=== PATIENT | female | born 1990 | race Hispanic/Latino ===

== ENCOUNTER 2018-07-04 18:24 | Emergency (ER) | payer OTHER ==
[2018-07-04 18:58] LABS: BILIRUBIN,URINE Negative (NEGATIVE); COLOR,URINE Yellow (YELLOW); GLUCOSE, URINE (UA) Negative (NEGATIVE); KETONES,URINE Negative (NEGATIVE); LEUKOCYTE ESTERASE ,URINE Negative (NEGATIVE); NITRATE,URINE Negative (NEGATIVE); OCCULT BLOOD,URINE Negative (NEGATIVE); PH,URINE 6.5 (5.0-8.0); PROTEIN,URINE Negative (NEGATIVE)
[2018-07-04 19:08] LABS: APPEARANCE,URINE SLIGHTLY CLOUDY (CLEAR)
[2018-07-04 19:18] LABS: BACTERIA,URINE Few /HPF (None Seen); RBC,URINE 0-1 /HPF (0-1); SQUAMOUS EPITHELIAL CELL,UR Moderate /HPF (0-2); WBC,URINE 0-1 /HPF (0-1)
[2018-07-04 19:19] LABS: MUCUS,URINE Few LPF (None Seen)
[2018-07-04] MEDS ORDERED: MORPHINE SULFATE 4 MG/1ML SYG ONE (19:25)
[2018-07-04] MEDS ORDERED: ONDANSETRON HCL 4 MG/2 ML VIAL ONE (19:25)
[2018-07-04] MEDS ORDERED: SODIUM CHLORIDE 0.9% 1000ML 1,000 ML IV ONE (19:25)
[2018-07-04 19:28] LABS: BASOPHILS % (AUTO) 0.5 % (0.0-5.0); EOSINOPHILS % (AUTO) 0.7 % (0.0-8.0); HEMATOCRIT 42.6 % (36-48); LYMPHOCYTES % (AUTO) 13.2 % (21.0-51.0); MEAN CORPUSCULAR HEMOGLOBIN 27.7 pg (27.0-33.0); MEAN CORPUSCULAR HGB CONC 33.2 g/dL (32.0-36.0); MEAN CORPUSCULAR VOLUME 83.4 fL (79-99); MONOCYTES % (AUTO) 6.3 % (3.0-13.0); NEUTROPHILS % (AUTO) 79.3 % (40.0-77.0); PLATELET COUNT (AUTO) 281 K/uL (130-400); RED CELL DISTRIBUTION WIDTH 14.4 % (11.0-15.5); WHITE BLOOD COUNT (AUTO) 17.5 K/uL (4.8-10.8)
[2018-07-04 19:40] LABS: CREATININE 0.8 mg/dL (0.5-1.5); POTASSIUM 3.5 mmol/L (3.5-5.1)
[2018-07-04 19:45] LABS: ALBUMIN 3.5 g/dL (3.5-5.0); BILIRUBIN,TOTAL 0.2 mg/dL (0.2-1.0); TOTAL PROTEIN, SERUM 7.3 g/dL (6.0-8.3)
[2018-07-04] MEDS ORDERED: HYDROMORPHONE 1 MG/1 ML AMP ONE ×2 (20:20→21:28)
[2018-07-04] MEDS ORDERED: SODIUM CHLORIDE 0.9% 100 ML IV ONE (20:56)
[2018-07-04] MEDS ORDERED: CEFTRIAXONE SODIUM 1 GM ONE (20:56)
== END 2018-07-04 22:06 | disposition home or self-care (01) ==
LOC: EDH 18:24
DX: N39.0 Urinary tract infection, site not specified (principal); M54.5 Low back pain; I10 Essential (primary) hypertension; Z88.2 Allergy status to sulfonamides; Z88.6 Allergy status to analgesic agent; Z87.442 Personal history of urinary calculi; Z72.0 Tobacco use
CPT/HCPCS: 36415; 74176; 80053; 81001; 81025; 85025; 96374; 96375; 96376; 99285; J0696; J1170 ×2; J2270; J2405; J7030

== ENCOUNTER 2018-07-27 00:22 | Emergency (ER) | payer OTHER ==
[2018-07-27 00:50] LABS: BILIRUBIN,URINE NEGATIVE (NEGATIVE); COLOR,URINE YELLOW (YELLOW); GLUCOSE, URINE (UA) NEGATIVE (NEGATIVE); HCG,QUAL RESULT NEGATIVE (NEGATIVE); KETONES,URINE NEGATIVE (NEGATIVE); LEUKOCYTE ESTERASE ,URINE NEGATIVE (NEGATIVE); NITRATE,URINE NEGATIVE (NEGATIVE); OCCULT BLOOD,URINE SMALL (NEGATIVE); PH,URINE 7.5 (5.0-8.0); PROTEIN,URINE NEGATIVE (NEGATIVE); UROBILINOGEN,URINE 0.2 mg/dL (0.2-1.0)
[2018-07-27 00:51] LABS: APPEARANCE,URINE SLIGHTLY CLOUDY (CLEAR)
[2018-07-27 01:01] LABS: AMORPHOUS SEDIMENT,UR Many /LPF (None Seen); BACTERIA,URINE Few /HPF (None Seen); MUCUS,URINE Many LPF (None Seen); SQUAMOUS EPITHELIAL CELL,UR Many /HPF (0-2); WBC,URINE 0-1 /HPF (0-1)
[2018-07-27 01:11] LABS: AMPHET/METH SCREEN,URINE NEGATIVE (NEGATIVE); BARBITURATE SCREEN, URINE NEGATIVE (NEGATIVE); BENZODIAZEPINES SCREEN,URINE NEGATIVE (NEGATIVE); CANNABINOID SCREEN,URINE POSITIVE (NEGATIVE); COCAINE SCREEN,URINE NEGATIVE (NEGATIVE); OPIATE SCREEN,URINE NEGATIVE (NEGATIVE); PHENCYCLIDINE SCREEN,URINE NEGATIVE (NEGATIVE)
[2018-07-27] MEDS ORDERED: CEFTRIAXONE SODIUM 1 GM ONE (01:37)
[2018-07-27] MEDS ORDERED: AZITHROMYCIN 250 MG TABLET PO ONE (01:38)
[2018-07-27] MEDS ORDERED: ONDANSETRON ODT 4 MG TAB ONE (01:38)
== END 2018-07-27 01:56 | disposition home or self-care (01) ==
LOC: EDH 00:22
DX: F12.10 Cannabis abuse, uncomplicated (principal); R30.0 Dysuria; R10.30 Lower abdominal pain, unspecified; I10 Essential (primary) hypertension; Z87.442 Personal history of urinary calculi; Z88.2 Allergy status to sulfonamides; Z88.6 Allergy status to analgesic agent; Z72.0 Tobacco use
CPT/HCPCS: 80305; 81001; 81025; 96372; 99284; J0696

== ENCOUNTER 2019-02-10 06:45 | Emergency (ER) | payer OTHER ==
[2019-02-10] MEDS ORDERED: TETRACAINE HCL 0.5% 4 ML OPHTH SOLN ONE (07:11)
[2019-02-10] MEDS ORDERED: FLUORESCEIN SODIUM 1 STRIP STRIP ONE (07:11)
[2019-02-10] MEDS ORDERED: ERYTHROMYCIN BASE 0.5% OPHTH OINT 1 GM TUBE ONE (07:30)
[2019-02-10] MEDS ORDERED: AMOXICILLIN 500 MG CAPSULE PO ONE (07:30)
== END 2019-02-10 08:14 | disposition home or self-care (01) ==
LOC: EDH 06:45
DX: H10.9 Unspecified conjunctivitis (principal); H00.031 Abscess of right upper eyelid; I10 Essential (primary) hypertension; Z87.442 Personal history of urinary calculi; Z88.2 Allergy status to sulfonamides; Z88.6 Allergy status to analgesic agent

== ENCOUNTER 2019-03-04 00:14 | Emergency (ER) | payer OTHER | END 2019-03-04 00:59 | disposition left against medical advice (07) | LOC: EDH 00:14 | DX: M25.551 Pain in right hip (principal); M25.571 Pain in right ankle and joints of right foot; Z87.442 Personal history of urinary calculi; Z88.6 Allergy status to analgesic agent; Z88.2 Allergy status to sulfonamides; Z96.641 Presence of right artificial hip joint; Z93.6 Other artificial openings of urinary tract status; W18.39XA Other fall on same level, initial encounter; Y93.01 Activity, walking, marching and hiking; Y92.89 Other specified places as the place of occurrence of the external cause; Y99.8 Other external cause status | CPT/HCPCS: 99281 ==

== ENCOUNTER 2019-05-02 17:16 | Emergency (ER) | payer OTHER | END 2019-05-02 17:42 | disposition left against medical advice (07) | LOC: EDH 17:16 | DX: R10.9 Unspecified abdominal pain (principal); Z53.21 Procedure and treatment not carried out due to patient leaving prior to being seen by health care provider; Z87.442 Personal history of urinary calculi; Z88.2 Allergy status to sulfonamides; Z88.6 Allergy status to analgesic agent ==

== ENCOUNTER 2019-05-24 21:36 | Emergency (ER) | payer OTHER ==
[2019-05-24 21:55] LABS: APPEARANCE,URINE Turbid (CLEAR); BILIRUBIN,URINE Negative (NEGATIVE); COLOR,URINE Yellow (YELLOW); GLUCOSE, URINE (UA) Negative (NEGATIVE); KETONES,URINE 40 mg/dL (NEGATIVE); LEUKOCYTE ESTERASE ,URINE Trace (NEGATIVE); NITRATE,URINE Negative (NEGATIVE); OCCULT BLOOD,URINE Negative (NEGATIVE); PH,URINE 5.5 (5.0-8.0); PROTEIN,URINE Negative (NEGATIVE)
[2019-05-24 22:02] LABS: BACTERIA,URINE Moderate /HPF (None Seen); MUCUS,URINE Moderate LPF (None Seen)
[2019-05-24] MEDS ORDERED: ONDANSETRON HCL 4 MG/2 ML VIAL ONE (22:20)
[2019-05-24] MEDS ORDERED: SODIUM CHLORIDE 0.9% 1000ML 1,000 ML IV ONE (22:21)
[2019-05-24] MEDS ORDERED: MORPHINE SULFATE 2 MG/ML 1ML SYG ONE (22:21)
[2019-05-24] MEDS ORDERED: MORPHINE SULFATE 4 MG/1ML SYG ONE (22:21)
[2019-05-24 22:27] LABS: BASOPHILS % (AUTO) 1.2 % (0.0-5.0); EOSINOPHILS % (AUTO) 1.2 % (0.0-8.0); HEMATOCRIT 40.4 % (36-48); LYMPHOCYTES % (AUTO) 12.8 % (21.0-51.0); MEAN CORPUSCULAR HEMOGLOBIN 25.9 pg (27.0-33.0); MEAN CORPUSCULAR HGB CONC 33.1 g/dL (32.0-36.0); MEAN CORPUSCULAR VOLUME 78.4 fL (79-99); MONOCYTES % (AUTO) 3.7 % (3.0-13.0); NEUTROPHILS % (AUTO) 81.1 % (40.0-77.0); PLATELET COUNT (AUTO) 281 K/uL (130-400); RED BLOOD CELL COUNT(AUTO) 5.15 MIL/uL (4.00-5.50); RED CELL DISTRIBUTION WIDTH 16.3 % (11.0-15.5); WHITE BLOOD COUNT (AUTO) 15.2 K/uL (4.8-10.8)
[2019-05-24 22:39] LABS: CREATININE 0.6 mg/dL (0.5-1.5); POTASSIUM 4.3 mmol/L (3.5-5.1)
[2019-05-24 22:44] LABS: ALBUMIN 3.5 g/dL (3.5-5.0); BILIRUBIN,TOTAL 0.4 mg/dL (0.2-1.0); TOTAL PROTEIN, SERUM 7.1 g/dL (6.0-8.3)
== END 2019-05-25 01:24 | disposition home or self-care (01) ==
LOC: EDH 21:36
DX: N83.201 Unspecified ovarian cyst, right side (principal); Z72.0 Tobacco use; Z88.2 Allergy status to sulfonamides; Z88.6 Allergy status to analgesic agent; Z96.641 Presence of right artificial hip joint; Z93.6 Other artificial openings of urinary tract status
CPT/HCPCS: 36415; 74176; 76856; 80053; 81001; 81025; 85025; 96374; 96375; 99285; J2270; J2405; J7030

== ENCOUNTER 2019-07-18 17:31 | Emergency (ER) | payer SELFPAY | END 2019-07-18 18:43 | disposition left against medical advice (07) | LOC: EDH 17:31 | DX: R50.9 Fever, unspecified (principal); R10.2 Pelvic and perineal pain; Z53.21 Procedure and treatment not carried out due to patient leaving prior to being seen by health care provider; Z87.442 Personal history of urinary calculi; Z72.0 Tobacco use; Z88.2 Allergy status to sulfonamides; Z88.6 Allergy status to analgesic agent ==

== ENCOUNTER 2020-02-05 14:53 | Emergency (ER) | payer SELFPAY ==
[2020-02-05] MEDS ORDERED: SODIUM CHLORIDE 0.9% 1000ML 1,000 ML IV ONE (15:27)
[2020-02-05] MEDS ORDERED: ONDANSETRON HCL 4 MG/2 ML VIAL ONE (15:27)
[2020-02-05] MEDS ORDERED: MORPHINE SULFATE 4 MG/1ML SYG ONE (15:27)
[2020-02-05 15:42] LABS: BASOPHILS % (AUTO) 0.5 % (0.0-5.0); EOSINOPHILS % (AUTO) 0.7 % (0.0-8.0); HEMATOCRIT 41.1 % (36-48); LYMPHOCYTES % (AUTO) 16.3 % (21.0-51.0); MEAN CORPUSCULAR HEMOGLOBIN 27.1 pg (27.0-33.0); MEAN CORPUSCULAR HGB CONC 33.1 g/dL (32.0-36.0); MEAN CORPUSCULAR VOLUME 81.9 fL (79-99); MONOCYTES % (AUTO) 7.9 % (3.0-13.0); NEUTROPHILS % (AUTO) 73.8 % (40.0-77.0); PLATELET COUNT (AUTO) 312 K/uL (130-400); RED BLOOD CELL COUNT(AUTO) 5.02 MIL/uL (4.00-5.50); RED CELL DISTRIBUTION WIDTH 14.3 % (11.0-15.5); WHITE BLOOD COUNT (AUTO) 16.4 K/uL (4.8-10.8)
[2020-02-05 15:45] LABS: APPEARANCE,URINE CLEAR (CLEAR); BILIRUBIN,URINE NEGATIVE (NEGATIVE); COLOR,URINE YELLOW (YELLOW); GLUCOSE, URINE (UA) NEGATIVE (NEGATIVE); KETONES,URINE NEGATIVE (NEGATIVE); LEUKOCYTE ESTERASE ,URINE TRACE (NEGATIVE); NITRATE,URINE NEGATIVE (NEGATIVE); OCCULT BLOOD,URINE TRACE-INTACT (NEGATIVE); PH,URINE 7.5 (5.0-8.0); PROTEIN,URINE NEGATIVE (NEGATIVE); UROBILINOGEN,URINE 0.2 mg/dL (0.2-1.0)
[2020-02-05 15:53] LABS: CREATININE 0.8 mg/dL (0.5-1.5); POTASSIUM 3.6 mmol/L (3.5-5.1)
[2020-02-05 15:54] LABS: HCG,QUAL RESULT NEGATIVE (NEGATIVE)
[2020-02-05 15:58] LABS: BACTERIA,URINE Moderate /HPF (None Seen); RBC,URINE 0-1 /HPF (0-1); SQUAMOUS EPITHELIAL CELL,UR 30-50 /HPF (0-2)
[2020-02-05 15:59] LABS: ALBUMIN 3.5 g/dL (3.5-5.0); BILIRUBIN,TOTAL 0.4 mg/dL (0.2-1.0); TOTAL PROTEIN, SERUM 7.3 g/dL (6.0-8.3)
[2020-02-05] MEDS ORDERED: TRAMADOL HCL 50 MG TABLET ONE (17:33)
[2020-02-05] MEDS ORDERED: ACETAMINOPHEN-CODEINE 300/30MG TAB ONE (17:39)
== END 2020-02-05 18:07 | disposition home or self-care (01) ==
LOC: EDH 14:53
DX: R10.31 Right lower quadrant pain (principal); R50.9 Fever, unspecified; Z88.6 Allergy status to analgesic agent; Z88.1 Allergy status to other antibiotic agents
CPT/HCPCS: 36415; 74176; 80053; 81001; 81025; 85025; 87088; 96374; 96375; 99284; J2270; J2405; J7030

== ENCOUNTER 2020-04-20 02:45 | Emergency (ER) | payer OTHER ==
[2020-04-20] MEDS ORDERED: SODIUM CHLORIDE 0.9% 500ML 500 ML IV ONE (02:46)
[2020-04-20 03:19] LABS: BASOPHILS % (AUTO) 0.6 % (0.0-5.0); EOSINOPHILS % (AUTO) 1.7 % (0.0-8.0); HEMATOCRIT 43.3 % (36-48); LYMPHOCYTES % (AUTO) 25.4 % (21.0-51.0); MEAN CORPUSCULAR HEMOGLOBIN 27.9 pg (27.0-33.0); MEAN CORPUSCULAR VOLUME 84.6 fL (79-99); NEUTROPHILS % (AUTO) 64.8 % (40.0-77.0); PLATELET COUNT (AUTO) 346 K/uL (130-400); RED BLOOD CELL COUNT(AUTO) 5.12 MIL/uL (4.00-5.50); RED CELL DISTRIBUTION WIDTH 13.6 % (11.0-15.5); WHITE BLOOD COUNT (AUTO) 16.2 K/uL (4.8-10.8)
[2020-04-20 03:22] LABS: BILIRUBIN,URINE Negative (NEGATIVE); COLOR,URINE Yellow (YELLOW); GLUCOSE, URINE (UA) Negative (NEGATIVE); KETONES,URINE Negative (NEGATIVE); LEUKOCYTE ESTERASE ,URINE Negative (NEGATIVE); NITRATE,URINE Negative (NEGATIVE); OCCULT BLOOD,URINE Negative (NEGATIVE); PROTEIN,URINE Negative (NEGATIVE)
[2020-04-20 03:26] LABS: APPEARANCE,URINE CLEAR (CLEAR)
[2020-04-20 03:30] LABS: CREATININE 0.7 mg/dL (0.5-1.5); POTASSIUM 3.9 mmol/L (3.5-5.1)
[2020-04-20 03:32] LABS: HCG,QUAL RESULT NEGATIVE (NEGATIVE)
[2020-04-20 03:34] LABS: ALBUMIN 3.6 g/dL (3.5-5.0); BILIRUBIN,TOTAL 0.2 mg/dL (0.2-1.0); TOTAL PROTEIN, SERUM 7.8 g/dL (6.0-8.3)
[2020-04-20] MEDS ORDERED: MORPHINE SULFATE 4 MG/1ML SYG ONE ×2 (03:38→06:24)
[2020-04-20] MEDS ORDERED: ONDANSETRON HCL 4 MG/2 ML VIAL ONE (03:38)
[2020-04-20] MEDS ORDERED: IBUPROFEN 800 MG TAB ONE (04:06)
[2020-04-20] MEDS ORDERED: ORPHENADRINE CITRATE 30 MG/ML ML ONE (07:31)
== END 2020-04-20 07:45 | disposition home or self-care (01) ==
LOC: EDH 02:45
DX: N83.299 Other ovarian cyst, unspecified side (principal); R10.2 Pelvic and perineal pain; Z88.6 Allergy status to analgesic agent; Z88.2 Allergy status to sulfonamides
CPT/HCPCS: 36415; 76770; 76856; 80053; 81003; 81025; 85025; 87088; 96374; 96375; 96376; 99285; J2270 ×2; J2360; J2405; J7040

== ENCOUNTER 2020-09-07 20:18 | Emergency (ER) | payer OTHER ==
[2020-09-07 21:34] LABS: BASOPHILS % (AUTO) 0.5 % (0.0-5.0); EOSINOPHILS % (AUTO) 1.7 % (0.0-8.0); HEMATOCRIT 42.9 % (36-48); LYMPHOCYTES % (AUTO) 21.2 % (21.0-51.0); MEAN CORPUSCULAR HEMOGLOBIN 27.7 pg (27.0-33.0); MEAN CORPUSCULAR HGB CONC 33.3 g/dL (32.0-36.0); MONOCYTES % (AUTO) 7.3 % (3.0-13.0); NEUTROPHILS % (AUTO) 68.4 % (40.0-77.0); PLATELET COUNT (AUTO) 323 K/uL (130-400); RED BLOOD CELL COUNT(AUTO) 5.17 MIL/uL (4.00-5.50); RED CELL DISTRIBUTION WIDTH 13.9 % (11.0-15.5); WHITE BLOOD COUNT (AUTO) 14.9 K/uL (4.8-10.8)
[2020-09-07] MEDS ORDERED: ONDANSETRON HCL 4 MG/2 ML VIAL ONE (21:34)
[2020-09-07] MEDS ORDERED: MORPHINE SULFATE 4 MG/1ML SYG ONE ×2 (21:35→22:40)
[2020-09-07 21:36] LABS: APPEARANCE,URINE CLOUDY (CLEAR); BILIRUBIN,URINE NEGATIVE (NEGATIVE); COLOR,URINE YELLOW (YELLOW); GLUCOSE, URINE (UA) NEGATIVE (NEGATIVE); KETONES,URINE NEGATIVE (NEGATIVE); LEUKOCYTE ESTERASE ,URINE NEGATIVE (NEGATIVE); NITRATE,URINE NEGATIVE (NEGATIVE); OCCULT BLOOD,URINE LARGE (NEGATIVE); PH,URINE 6.5 (5.0-8.0); PROTEIN,URINE NEGATIVE (NEGATIVE)
[2020-09-07 21:40] LABS: HCG,QUAL RESULT NEGATIVE (NEGATIVE)
[2020-09-07 21:47] LABS: CARBON DIOXIDE 26 mmol/L (21-32); CHLORIDE 105 mmol/L (101-111); CREATININE 0.7 mg/dL (0.5-1.5); GLOMERULAR FILTR. RATE CALC 105 mL/min (>60); GLUCOSE,RANDOM 113 mg/dL (70-105); POTASSIUM 3.9 mmol/L (3.5-5.1); SODIUM SERUM 142 mmol/L (136-145); UREA NITROGEN, BLOOD 11 mg/dL (7-18)
[2020-09-07 21:52] LABS: ALANINE AMINOTRANSFERASE 25 U/L (12-78); ALBUMIN 3.7 g/dL (3.5-5.0); ASPARTATE AMINOTRANSFERASE 17 U/L (10-37); BILIRUBIN,TOTAL 0.2 mg/dL (0.2-1.0); TOTAL PROTEIN, SERUM 7.4 g/dL (6.0-8.3)
[2020-09-07 21:52] LABS: BACTERIA,URINE Few /HPF (None Seen); SQUAMOUS EPITHELIAL CELL,UR Moderate /HPF (0-2); WBC,URINE 0-1 /HPF (0-1)
[2020-09-07 21:53] LABS: LIPASE < 50 U/L (114-286)
[2020-09-07 22:14] LABS: AMPHET/METH SCREEN,URINE NEGATIVE (NEGATIVE); BARBITURATE SCREEN, URINE NEGATIVE (NEGATIVE); BENZODIAZEPINES SCREEN,URINE NEGATIVE (NEGATIVE); CANNABINOID SCREEN,URINE NEGATIVE (NEGATIVE); COCAINE SCREEN,URINE NEGATIVE (NEGATIVE); OPIATE SCREEN,URINE NEGATIVE (NEGATIVE); PHENCYCLIDINE SCREEN,URINE NEGATIVE (NEGATIVE)
== END 2020-09-07 23:47 | disposition home or self-care (01) ==
LOC: DTH 20:18
DX: K57.30 Diverticulosis of large intestine without perforation or abscess without bleeding (principal); K42.9 Umbilical hernia without obstruction or gangrene; K76.0 Fatty (change of) liver, not elsewhere classified
CPT/HCPCS: 36415; 74176; 80053; 80305; 81001; 81025; 83690; 85025; J2270 ×2; J2405

== ENCOUNTER 2020-11-27 19:07 | Emergency (ER) | payer OTHER ==
[2020-11-27] MEDS ORDERED: HYDROCODONE/ACETAMINOPHEN 5/325 MG TAB ONE (19:59)
== END 2020-11-27 20:03 | disposition home or self-care (01) ==
LOC: EDH 19:07
DX: S62.647A Nondisplaced fracture of proximal phalanx of left little finger, initial encounter for closed fracture (principal); Z88.2 Allergy status to sulfonamides; Z88.6 Allergy status to analgesic agent; X58.XXXA Exposure to other specified factors, initial encounter; Y93.89 Activity, other specified; Y92.89 Other specified places as the place of occurrence of the external cause; Y99.8 Other external cause status
CPT/HCPCS: 29130; 73140

== ENCOUNTER 2021-03-09 00:38 | Emergency (ER) | payer SELFPAY ==
[~2021-03-09] VITALS: Ht 152.4 cm; Wt 82.6 kg
[2021-03-09] MEDS ORDERED: ONDANSETRON 4MG INJ ONE (04:56)
[2021-03-09] MEDS ORDERED: FENTANYL CITRATE PF 50 MCG/1 ML 2ML VIAL ONE (05:03)
[2021-03-09] MEDS ORDERED: HYDROMORPHONE 0.5 MG SYG (0.5MG/0.5ML) ONE (06:32)
[2021-03-09 07:40] VITALS: BP 118/71
[2021-03-09] MEDS ORDERED: KETOROLAC 15MG/ML VIAL (15MG/ML) ONE (08:15)
[2021-03-09] MEDS ORDERED: KETOROLAC 15MG/ML VIAL (15MG/ML) IM ONE (08:15)
[2021-03-09] MEDS ORDERED: ACET1TAB27 PO (08:19)
[2021-03-09] MEDS ORDERED: MORPHINE 4 MG SYG ONE (08:23)
== END 2021-03-09 08:34 | disposition home or self-care (01) ==
LOC: EDH 00:38
DX: D27.0 Benign neoplasm of right ovary (principal); Z79.899 Other long term (current) drug therapy; Z88.2 Allergy status to sulfonamides; Z87.442 Personal history of urinary calculi; Z88.8 Allergy status to other drugs, medicaments and biological substances
CPT/HCPCS: 74176; 76856; 96374; 96375; 99285; J1170; J1885; J2270; J2405; J3010

== ENCOUNTER 2021-05-27 18:46 | Emergency (ER) | payer SELFPAY ==
[~2021-05-27] VITALS: Ht 154.9 cm; Wt 86.2 kg
[~2021-05-27 18:46] MED LIST: ACET1TAB27 PO
[2021-05-27 18:48] VITALS: BP 81/117
== END 2021-05-27 20:04 | disposition left against medical advice (07) ==
LOC: EDH 18:46
DX: R33.9 Retention of urine, unspecified (principal); R11.10 Vomiting, unspecified; Z53.21 Procedure and treatment not carried out due to patient leaving prior to being seen by health care provider

== ENCOUNTER 2024-05-22 07:04 | Emergency (ER) | payer OTHER, MEDICAID ==
[~2024-05-22] VITALS: Ht 154.9 cm; Wt 89.0 kg
[~2024-05-22 07:04] MED LIST changes: -ACET1TAB27 PO; +ACET1TAB97 PO
[2024-05-22] MEDS: tamSULOsin HCL 0.4 MG CAP.ER.24H PO ONE (07:57)
[2024-05-22] MEDS: ondanSETRON 4MG INJ IVP ONE ×2 (08:11→11:36)
[2024-05-22 08:12] LABS: BASOPHILS # (AUTO) 0.08 K/uL (0.00-0.20); BASOPHILS % (AUTO) 0.5 % (0.0-5.0); EOSINOPHILS % (AUTO) 0.6 % (0.0-8.0); HEMATOCRIT 41.1 % (36-48); IMMATURE GRANULOCYTE ABSOLUTE 0.08 K/uL (0-1); LYMPHOCYTES # (AUTO) 3.1 K/uL (1.0-4.8); MEAN CORPUSCULAR HEMOGLOBIN 24.9 pg (27.0-33.0); MEAN CORPUSCULAR HGB CONC 32.1 g/dL (32.0-36.0); MEAN CORPUSCULAR VOLUME 77.4 fL (79-99); MONOCYTES # (AUTO) 1.4 K/uL (0.1-1.0); MONOCYTES % (AUTO) 8.6 % (3.0-13.0); NEUTROPHILS # (AUTO) 11.5 K/uL (1.8-7.7); NEUTROPHILS % (AUTO) 70.8 % (40.0-77.0); PLATELET COUNT (AUTO) 339 K/uL (130-400); RED BLOOD CELL COUNT(AUTO) 5.31 MIL/uL (4.00-5.50); RED CELL DISTRIBUTION WIDTH 14.8 % (11.0-15.5); WHITE BLOOD COUNT (AUTO) 16.2 K/uL (4.8-10.8)
[2024-05-22 08:12] LABS: APPEARANCE,URINE CLEAR (CLEAR); COLOR,URINE RED (YELLOW)
[2024-05-22] MEDS: morPHINE 2 MG SYG IVP ONE ×2 (08:12→08:52)
[2024-05-22 08:14] LABS: PROTEIN,URINE 100 mg/dL (NEGATIVE)
[2024-05-22 08:15] LABS: BILIRUBIN,URINE NEGATIVE (NEGATIVE); GLUCOSE, URINE (UA) NEGATIVE (NEGATIVE); OCCULT BLOOD,URINE LARGE (NEGATIVE)
[2024-05-22 08:16] LABS: ADD UA MICROSCOPIC YES; KETONES,URINE SMALL mg/dL (NEGATIVE); LEUKOCYTE ESTERASE ,URINE TRACE Leu/uL (NEGATIVE); NITRATE,URINE NEGATIVE (NEGATIVE); UROBILINOGEN,URINE 0.2 mg/dL (0.2-1.0)
[2024-05-22 08:17] LABS: PH,URINE 6.5 (5.0-8.0)
[2024-05-22 08:19] LABS: CREATININE 0.8 mg/dL (0.5-1.0); POTASSIUM 3.4 mmol/L (3.5-5.1)
[2024-05-22 08:20] LABS: RBC,URINE TNTC /HPF (0-1)
[2024-05-22] MEDS: 0.9%NACL 1000ML 1,000 ML IV SCH (08:24)
[2024-05-22 08:28] LABS: ALBUMIN 3.7 g/dL (3.5-5.0); BILIRUBIN,TOTAL 0.4 mg/dL (0.2-1.0); TOTAL PROTEIN, SERUM 7.4 g/dL (6.0-8.3)
[2024-05-22 08:31] LABS: BACTERIA,URINE Moderate /HPF (None Seen); SQUAMOUS EPITHELIAL CELL,UR Few /HPF (0-2)
[2024-05-22] MEDS: cefTRIAXone 1G VIAL IVPB ONE (08:42)
[2024-05-22] MEDS: ibuPROFEN 600 MG TABLET PO ONE (10:19)
[2024-05-22] MEDS: acetaMINOPHEN 500 MG TABLET PO ONE (10:19)
[2024-05-22] MEDS: hydroMORPHone 1 MG INJ IVP ONE (11:44)
[2024-05-22] MEDS ORDERED: ACET-2079 PO (12:02)
[2024-05-22] MEDS ORDERED: CEPH500B PO (12:10)
[2024-05-22] MEDS ORDERED: TAMS-1 PO (12:10)
[2024-05-22 12:33] VITALS: BP 138/77; PULSE 84; RESP 13; TEMP 97.6; O2SAT 96
== END 2024-05-22 12:45 | disposition home or self-care (01) ==
LOC: EDH 07:04
DX: N20.0 Calculus of kidney (principal); N39.0 Urinary tract infection, site not specified; Z79.899 Other long term (current) drug therapy; Z88.5 Allergy status to narcotic agent; Z88.6 Allergy status to analgesic agent; Z88.2 Allergy status to sulfonamides; Z98.890 Other specified postprocedural states
CPT/HCPCS: 99285; 74176; 96374; 96375; 80053; 85025; 87086; 81001; 81025; 36415; 96376; J1170; J2270 ×2; J7030; J0696; J2405 ×2

== ENCOUNTER 2025-04-25 18:05 | Emergency (ER) | payer MEDICAID, OTHER ==
[~2025-04-25] VITALS: Ht 154.9 cm; Wt 88.9 kg
[~2025-04-25 18:05] MED LIST changes: +ACET-2079 PO; +CEPH500B PO; +TAMS-55 PO
[2025-04-25 18:06] VITALS: TEMP 98.4
--- NOTE | 2025-04-25 18:20 | ERN ---
ED Note History of Present Illness Stated Complaint: KIDNEY STONE Chief Complaint: Painful Urination Time Seen by MD: 18:07 Dictation: PATIENT IS A 35-YEAR-OLD FEMALE COMING IN TODAY WITH RIGHT FLANK PAIN THAT RADIATES TO RIGHT LOWER QUADRANT FEVER CHILLS AND PASSING A STONE EARLIER THIS AFTERNOON. SHE ALSO STATES SHE HAS HAD A HEADACHE FOR LAST SEVERAL DAYS IN HIS ONLY SLEPT 12 HOURS IN THE LAST FIVE DAYS BECAUSE SHE HAS BEEN DOWN HERE FROM [facility] AFTER HER MOTHER AND WENT TO THE . SHE STATES HER PRIMARY CARE DOCTORS IN [facility] ALONG WITH HER UROLOGISTS AND HAS STONES IN THE PAST. CUT TYLENOL EARLIER TODAY FOR PAIN FOR THE HEADACHE. Allergies: Coded Allergies: tramadol (Unverified Allergy, Severe, 05/22/24) Sulfa (Sulfonamide Antibiotics) (Verified Allergy, Unknown, 03/02/14) ketorolac (Unverified Allergy, Unknown, 03/04/19) Home Meds Active Scripts Tamsulosin HCl (Flomax) 0.4 Mg Cap.er.24h, 0.4 MG PO DAILY for 30 Days, #[address]SULE.DR Prov:AZEB WASHINGTON MD 05/22/24 Cephalexin Monohydrate (Keflex) 500 Mg Cap, 500 MG PO TID for 7 Days, #21 CAP Prov:AZEB WASHINGTON MD 05/22/24 Acetaminophen with Codeine (Acetaminophen-Cod #3 Tablet) 300 Mg-30 Mg Tablet, 1 EACH PO Q6HPRN for pain, #15 TAB Prov:DELGADO PUTNAM MD 05/22/24 Acetaminophen with Codeine (Acetaminophen-Cod #4 Tablet) 1 Each Tablet, 1 EACH PO TID for pain for 5 Days, #15 TAB 0 Refills Prov:TRINITY HERNANDEZ MD 03/09/21 Past Medical History Past Medical History: Kidney Stone Additional Past Medical Hx: KIDNEY STONES Surgical History: Other Surgical History Other: NEPHROSTOMY TUBE PLACEMENT Social History: Negative, Lives with family History: Not Applicable LMP: Apr 07, 2025 RN Note Reviewed/Agreed w/PFSH: Yes Review of System Dictation CONSTITUTIONAL: NEGATIVE EXCEPT FOR HPI HEAD/FACE: NEGATIVE EXCEPT FOR HPI EENT: NEGATIVE EXCEPT FOR HPI RESPIRATORY: NEGATIVE EXCEPT FOR HPI GASTROINTESTINAL/ABDOMINAL: NEGATIVE EXCEPT FOR HPI RIGHT FLANK PAIN THAT RADIATES TO RIGHT LOWER QUADRANT WITH A PAST STONE GENITOURINARY: NEGATIVE EXCEPT FOR HPI MUSCULOSKELETAL: NEGATIVE EXCEPT FOR HPI INTEGUMENTARY: NEGATIVE EXCEPT FOR HPI NEUROLOGICAL/PSYCH: NEGATIVE EXCEPT FOR HPI HEADACHE HEMATOLOGIC/LYMPHATIC: NEGATIVE EXCEPT FOR HPI ALL SYSTEMS NEGATIVE, EXCEPT NOTED ABOVE. 13 POINT REVIEW OF SYSTEMS ASSESSED AND ALL NEGATIVE EXCEPT FOR ABOVE. Initial Vital Sign VS Vital Signs Date Time Temp Pulse Resp B/P (MAP) Pulse Ox O2 Delivery O2 Flow Rate FiO2 04/25/25 18:06 98.4 82 19 189/100 99 Room Air 0 04/25/25 19:46 21 Physical Exam Dictation VITAL SIGNS REVIEWED GENERAL APPEARANCE: ALERT, ORIENTED X 3, MODERATE ACUTE DISTRESS, WELL DEVELOPED, NOURISHED. OBESE HEAD AND FACE: NON-TRAUMATIC. EYES: PERRL, PINK CONJUNCTIVAS, EYELID NO TRAUMA, ANTERIOR CHAMBER WITH ARCUS SENILIS. EARS: PINNAS INTACT AND NO SIGNS OF TRAUMA OR ERYTHEMA EAR CANALS CLEAR AND NO DISCHARGE TM NO ERYTHEMA NOSE: NO DISCHARGE, NO BLEEDING. OROPHARYNX: MOUTH NORMAL, TONGUE PINK, PHARYNX CLEAR,NO ERYTHEMA, TONSILS NO EXUDATES, NO ABSCESSES NOTED, MUCOUS MEMBRANE MOIST NECK: SUPPLE, NON-TENDER, NO THYROMEGALY, NO MASSES, NO JVD, NO BRUITS BREAST:DEFERRED CHEST:NO TENDERNESS, NO CREPITUS, NO PARADOXICAL MOVEMENT, NO RETRACTIONS LUNGS:CLEAR, WELL-VENTILATED, SYMMETRIC, NO RALES, NO WHEEZING, NO RHONCHI, NO STRIDOR, GOOD BREATH SOUNDS BILATERALLY HEART: REGULAR RATE, REGULAR RHYTHM, NO MURMUR, NO GALLOPS VASCULAR: NO PERIPHERAL EDEMA, ABDOMEN: SOFT, POSITIVE BOWEL SOUNDS, NONDISTENDED, NO GUARDING, NONTENDER, NO REBOUND, NO MASSES NO HEPATOMEGALY, NO SPLENOMEGALY, NO CAMERON'S SIGN, NO HERNIAS. NEGATIVE CVAT BILATERALLY RECTAL: DEFERRED GENITAL: DEFERRED NEUROLOGICAL: NORMAL SPEECH, MOTOR FUNCTION INTACT, SENSORY FUNCTION INTACT NIH IS 0 MUSCULOSKELETAL: NECK NONTENDER, FULL RANGE OF MOTION, BACK NONTENDER, FULL RANGE OF MOTION, EXTREMITIES: NONTENDER, FULL RANGE OF MOTION SKIN: COLOR PINK, DRY, NO TURGOR, NO RASH, NO LACERATIONS, NO ABRASIONS, NO CONTUSIONS. LYMPHATIC: DEFERRED Results (Laboratory/Radiology) Laboratory/Radiology Laboratory Tests Test 04/25/25 18:32 04/25/25 19:11 White Blood Count 10.7 K/uL (4.8-10.8) Red Blood Count 5.40 MIL/uL (4.00-5.50) Hemoglobin 12.9 g/dL (12.0-16.0) Hematocrit 40.6 % (36-48) Mean Corpuscular Volume 75.2 fL (79-99) L Mean Corpuscular Hemoglobin 23.9 pg (27.0-33.0) L Mean Corpuscular Hemoglobin Concent 31.8 g/dL (32.0-36.0) L Red Cell Distribution Width 16.2 % (11.0-15.5) H Platelet Count 339 K/uL (130-400) Mean Platelet Volume 9.4 fL (7.5-10.5) Immature Granulocyte % (Auto) 0.6 % (0-1) Neutrophils (%) (Auto) 66.3 % (40.0-77.0) Lymphocytes (%) (Auto) 22.2 % (21.0-51.0) Monocytes (%) (Auto) 9.3 % (3.0-13.0) Eosinophils (%) (Auto) 1.2 % (0.0-8.0) Basophils (%) (Auto) 0.4 % (0.0-5.0) Neutrophils # (Auto) 7.1 K/uL (1.8-7.7) Lymphocytes # (Auto) 2.4 K/uL (1.0-4.8) Monocytes # (Auto) 1.0 K/uL (0.1-1.0) Eosinophils # (Auto) 0.13 K/uL (0.00-0.70) Basophils # (Auto) 0.04 K/uL (0.00-0.20) Absolute Immature Granulocyte (auto 0.06 K/uL (0-1) Nucleated Red Blood Cells 0.0 % (0.0-0.19) Red Blood Cell Morphology See comments Sodium Level 139 mmol/L (136-145) Potassium Level 3.7 mmol/L (3.5-5.1) Chloride Level 105 mmol/L (101-111) Carbon Dioxide Level 27 mmol/L (21-32) Blood Urea Nitrogen 10 mg/dL (7-18) Creatinine 0.6 mg/dL (0.5-1.0) Glomerular Filtration Rate Calc 121 mL/min (>90) Random Glucose 99 mg/dL (70-105) Total Calcium 8.3 mg/dL (8.5-10.1) L Troponin I High Sensitivity < 4 ng/L (4-50) L Urine Color RED (YELLOW) H Urine Appearance TURBID (CLEAR) Urine pH 5.5 (5.0-8.0) Urine Specific [place] 1.025 (1.001-1.031) Urine Protein 100 mg/dL (NEGATIVE) H Urine Glucose (UA) NEGATIVE mg/dL (NEGATIVE) Urine Ketones NEGATIVE mg/dL (NEGATIVE) Urine Occult Blood LARGE (NEGATIVE) H Urine Nitrate NEGATIVE (NEGATIVE) Urine Bilirubin NEGATIVE mg/dL (NEGATIVE) Urine Urobilinogen 0.2 mg/dL (0.2-1.0) Urine Leukocyte Esterase NEGATIVE Shikha/uL Urine RBC TNTC /HPF (0-1) H Urine WBC None /HPF (0-1) Urine Squamous Epithelial Cells MANY /HPF (0-2) Urine Bacteria None /HPF (None Seen) 1915/ Labs Reviewed?: Yes EKG Comment: EKG sinus rhythm/left atrial enlargement/heart rate 76/no ectopy ED Course ED Course Orders Procedure Category Date Status Time Us Renal Sonogram US 04/25/25 Resulted 18:15 Cbc With Differential LAB 04/25/25 Complete 18:15 Urinalysis Profile LAB 04/25/25 Complete 18:15 0.9%Nacl 1000ml (Ns PHA 04/25/25 Complete 1000ml) 18:30 Ondansetron 4mg Inj PHA 04/25/25 Complete (Zofran 4mg Inj) 18:30 Basic Metabolic Panel LAB 04/25/25 Complete 18:15 Troponin I High LAB 04/25/25 Complete Sensitivity 18:17 12 Lead Ekg Tracing- EKG 04/25/25 Complete Technical 18:17 Morphine 2mg Syg PHA 04/25/25 Complete (Morphine 2mg Syg) 19:30 Current Medications Medications (Trade) Dose Ordered Sig/Herbie Route PRN Reason Start Time Stop Time Status Last Admin Dose Admin Morphine Sulfate (morPHINE 2MG SYG) 2 mg ONCE ONCE IVP 04/25/25 18:30 04/25/25 18:45 DC Morphine Sulfate (morPHINE 2MG SYG) 2 mg ONCE ONCE IVP 04/25/25 19:30 04/25/25 19:36 DC 04/25/25 19:40 Ondansetron HCl (zoFRAN 4MG INJ) 4 mg ONCE ONCE IVP 04/25/25 18:30 04/25/25 18:31 DC 04/25/25 19:40 Sodium Chloride 1,000 ml @ 0 mls/hr ONCE ONCE IV 04/25/25 18:30 04/25/25 18:31 DC 04/25/25 19:41 Vital Signs Date Time Temp Pulse Resp B/P (MAP) Pulse Ox O2 Delivery O2 Flow Rate FiO2 04/25/25 19:46 75 16 144/82 99 Room Air* 0 21 04/25/25 18:06 98.4 82 19 189/100 99 Room Air 0 2012/PATIENT STATES PAIN IS NOW COMPLETELY RESOLVED. SHE IS AWARE THAT WORKUP IS NEGATIVE THERE IS NO UROLITHIASIS THERE IS NO HYDRO NEPHROSIS NO OBSTRUCTION. NO URINARY TRACT INFECTION SHE WILL BE TREATED FOR RECENTLY PASSED KIDNEY STONE, HEMATURIA AND PELVIC PAIN. NO ANXIETY REACTION AND GRIEF SECONDARY TO LOSS OF HER MOTHER. HEART Score Response (Comments) Value EKG: Repolarization changes 1 Age: < 45yrs (0) 0 Risk Factors: No known risk factors (0) 0 Initial Troponin: Normal limit (0) 0 Total 1 Medical Decision Making MDM MDM: DIFFERENTIAL DIAGNOSIS: PYELONEPHRITIS/CYSTITIS/UROLITHIASIS/HYDRO NEPHROSIS/HYDRO URETER/ACS/AMI ELECTROLYTE IMBALANCE/DEHYDRATION RATIONALE: TESTS CONSIDERED AND ORDERED SECONDARY TO SHARED DECISION MAKING INCL UDE: ULTRASOUND/LABS/EKG PREVIOUS OUTSIDE RECORDS REVIEWED: OLD ER VISITS. RISK OF COMPLICATION AND/OR MORBIDITY OR MORTALITY OF PATIENT MANAGEMENT: NONE MEDICATIONS-PER MEDICATION RECONCILIATION NEED FOR HOSPITALIZATION: PATIENT DOES NOT MEET CRITERIA FOR HOSPITALIZATION. NO NEED FOR EMERGENCY MAJOR/MINOR SURGERY: NO THERE ARE NO SOCIAL CONCERNS WITH THIS PATIENT. PRESCRIPTION DRUG MANAGEMENT NITROFURANTOIN/PYRIDIUM/ZOFRAN PRESCRIPTIONS WILL INCLUDE SYMPTOMATIC CARE PATIENT'S PRIOR EXTERNAL MEDICAL RECORDS FROM OTHER ER VISITS WERE REVIEWED BY ME INDICATED. PRIOR TESTING AND RESULTS FROM PREVIOUS VISITS WERE REVIEWED. PRIOR TESTS WERE TAKEN INTO ACCOUNT WITH MEDICAL DECISION MAKING AND RESOURCE UTILIZATION, INDEPENDENT HISTORIAN/HISTORIANS WERE USED TO OBTAIN COMPLETE MEDICAL HISTORY. I INDEPENDENTLY INTERPRETED THE TEST THAT WERE PERFORMED, RESULTS WERE REVIEWED BY ME AND CONSIDERED FINDINGS ON RADIOLOGY IF ORDERED. MEDICAL MANAGEMENT AND EXAMINATION INTERPRETATION DISCUSSIONS WERE HAD BY ME WIT H OTHER QUALIFIED HEALTHCARE PROFESSIONALS INDICATED FOR THE PATIENT'S CARE. DX & DISP Disposition: Discharge Departure Impression: Primary Impression: Hematuria Additional Impressions: History of renal stone, Acute headache, Grief reaction Condition: Stable Scripts Nitrofurantoin/Nitrofuran Mac (Macrobid) 100 Mg Cap 1 CAP PO BID for 7 Days, #14 CAP 0 Refills Prov: TERRI KAUR NP 04/25/25 Ondansetron (Ondansetron Odt) 4 Mg Tab.rapdis 4 MG PO Q6HPRN PRN for nausea, #16 TAB 0 Refills Prov: TERRI KAUR NP 04/25/25 Phenazopyridine HCl (Pyridium) 200 Mg Tab 200 MG PO TIDPC for 3 Days, #9 TAB TAKE WITH FOOD TO PREVENT STOMACH UPSET. Prov: TERRI KAUR NP 04/25/25 Additional Instructions: FOLLOW-UP WITH PRIMARY CARE PROVIDER IN 1 TO 2 DAYS. TAKE MEDICATIONS DIRECTED HERE IN THE EMERGENCY ROOM. OKAY TO CONTINUE HOME MEDICATIONS UNLESS OTHERWISE DISCUSSED DURING YOUR VISIT IN THE EMERGENCY ROOM TODAY. RETURN TO YOUR NEAREST EMERGENCY ROOM IF SYMPTOMS WORSEN OR IF THERE IS NO IMPROVEMENT. CALL 911 IF YOU NEED IMMEDIATE ASSISTANCE. TAKE TYLENOL OR MOTRIN [id number] NEEDED AND IF NO CONTRAINDICATIONS ARE PRESENT. INCREASE ORAL HYDRATION. A WOUND CULTURE OR URINE CULTURE WAS ORDERED HERE IN THE EMERGENCY ROOM DEPARTMENT PLEASE FOLLOW-UP WITH PRIMARY CARE PROVIDER AND ADVISE THEM TO GET REPEAT PORTS FROM OUR FACILITY. IF YOU HAD ANY SE WRAP/SPLINTS THAT WERE APPLIED HERE, PLEASE DO NOT REMOVE THEM UNTIL YOU SEE YOUR PRIMARY CARE OR SPECIALTY. TAKE ANTIBIOTICS DIRECTED UNTIL GONE. TAKE PYRIDIUM DIRECTED FOR THE NEXT THREE DAYS. REMEMBER THAT IT WILL TURN YOUR URINE ORANGE RED. INCREASE YOUR WATER INTAKE, SEE YOUR DOCTOR IN [place] FOR FOLLOW UP NEXT WEEK. Referrals: NONE (PCP) Time of Disposition: 20:15 I have reviewed the case, and I agree with, Diagnosis and Plan TERRI KAUR NP Apr 25, 2025 18:20
--- NOTE | 2025-04-25 18:25 | EKG ---
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
[2025-04-25 18:39] LABS: IMMATURE GRANULOCYTE ABSOLUTE 0.06 K/uL (0-1); NUCLEATED RED BLOOD CELLS 0.0 % (0.0-0.19); PLATELET COUNT (AUTO) 339 K/uL (130-400); RED BLOOD CELL COUNT(AUTO) 5.40 MIL/uL (4.00-5.50); RED CELL DISTRIBUTION WIDTH 16.2 % (11.0-15.5); WHITE BLOOD COUNT (AUTO) 10.7 K/uL (4.8-10.8)
[2025-04-25 18:47] LABS: CREATININE 0.6 mg/dL (0.5-1.0); GLOMERULAR FILTR. RATE CALC 121.0 mL/min (>90); GLUCOSE,RANDOM 99.0 mg/dL (70-105); SODIUM SERUM 139.0 mmol/L (136-145); UREA NITROGEN, BLOOD 10.0 mg/dL (7-18)
[2025-04-25 19:25] LABS: APPEARANCE,URINE TURBID (CLEAR); GLUCOSE, URINE (UA) NEGATIVE (NEGATIVE); NITRATE,URINE NEGATIVE (NEGATIVE); OCCULT BLOOD,URINE LARGE (NEGATIVE)
[2025-04-25 19:26] LABS: ADD UA MICROSCOPIC YES
[2025-04-25 19:28] LABS: SQUAMOUS EPITHELIAL CELL,UR MANY /HPF (0-2)
[2025-04-25 19:30] LABS: LEUKOCYTE ESTERASE ,URINE NEGATIVE Leu/uL (NEGATIVE)
--- NOTE | 2025-04-25 19:31 | HMCIMG ---
EXAMINATION: US Retroperitoneum, Renal. CLINICAL HISTORY: Patient presents with left flank pain radiating to the left lower quadrant. History of nephrolithiasis. TECHNIQUE: Real-time ultrasound of the retroperitoneum with image documentation. COMPARISON: Ultrasound renal sonogram dated April 20, 2020. FINDINGS: RIGHT KIDNEY: Measures 10.5 x 4.9 x 5.4 cm. Normal in size and contour. No renal mass or calculus. No hydronephrosis. LEFT KIDNEY: Measures 10.7 x 4.9 x 5.4 cm. Normal in size and contour. No renal mass or calculus. No hydronephrosis. BLADDER: Partially distended. IMPRESSION: No acute abnormality. No hydronephrosis or renal calculus. /[place]
[2025-04-25] MEDS: 0.9%NACL 1000ML 1,000 ML IV ONE (19:41)
[2025-04-25] MEDS ORDERED: MACR100 PO (20:18)
[2025-04-25] MEDS ORDERED: PHEN-847 PO (20:18)
[2025-04-25] MEDS ORDERED: ONDA-243 PO (20:18)
[2025-04-25] MEDS: PHENAZOpyridine HCL 200 MG TAB 200 MG TABLET PO ONE (20:32)
[2025-04-25 20:59] VITALS: BP 122/64; PULSE 76; RESP 16; O2SAT 99
== END 2025-04-25 21:12 | disposition home or self-care (01) ==
LOC: EDH 18:05
DX: R31.9 Hematuria, unspecified (principal); R51.9 Headache, unspecified; F43.20 Adjustment disorder, unspecified; Z88.2 Allergy status to sulfonamides; Z88.5 Allergy status to narcotic agent
CPT/HCPCS: 99285; 96374; 76770; 96361; 96375; 84484; 80048; 85025; 81001; 36415; 96376; 93005; J2270 ×2; J7030; J2405